=== PATIENT | female | born 1975 | race American Indian/Alaskan Native ===

== ENCOUNTER 2020-04-22 18:58 | Emergency (ER) | payer OTHER ==
[2020-04-22 20:22] VITALS: BP 141/96
== END 2020-04-22 21:25 | disposition left against medical advice (07) ==
LOC: ED 18:58
DX: M54.6 Pain in thoracic spine (principal); Z53.21 Procedure and treatment not carried out due to patient leaving prior to being seen by health care provider; V49.49XA Driver injured in collision with other motor vehicles in traffic accident, initial encounter; Y93.89 Activity, other specified; Y92.488 Other paved roadways as the place of occurrence of the external cause; Y99.8 Other external cause status